=== PATIENT | male | born 1950 | race Caucasian/White ===

== ENCOUNTER 2016-08-24 21:46 | Emergency (ER) ==
--- NOTE | 2016-08-24 23:18 | PROVIDER DOCUMENTATION ---
HPI-Musculoskeletal Pain/Inj - GENERAL Source: patient - HX OF PRESENT ILLNESS-MUSKULOSKELTAL Quality of Pain: reports: aching Severity in ED: mild Onset/Duration: 1 week ago Timing: still present Modifying Factors: improves with: nothing Any recent injury?: No Locality of Occurance: Home Similar Symptoms Previously?: Yes Recently seen or treated by another doctor?: No - BACK & NECK PAIN/INJURY Back/Neck Pain Location: reports: lumbar spine Context / Method of Injury: reports: unknown Associated Symptoms: reports: denies symptoms History of Chronic Neck or Back Pain?: Yes <Danielle Ocampo - Last Filed: 08/25/16 00:22> <Danni Diggs - Last Filed: 08/25/16 01:17> - GENERAL Chief Complaint: Back Pain Stated Complaint: BACK PAIN Time Seen by Provider: 08/24/16 23:10 - HX OF PRESENT ILLNESS-MUSKULOSKELTAL Nature of Presenting Problem: 66 year old M presents to the ED with a cc of lower back pain x1 week. Pt denies injury, urinary retention, or incontinence. (Danielle Ocampo) Review of Systems - Adult - REVIEW OF SYSTEMS - ADULT Constitutional: denies: chills, fever Eyes: reports: no symptoms reported Ears, Nose, Mouth & Throat: reports: no symptoms reported Cardiovascular: denies: chest pain, palpitations Respiratory: denies: cough, shortness of breath Gastrointestinal: denies: abdominal pain, nausea, vomiting Genitourinary: denies: dysuria, incontinence, urinary retention Musculoskeletal: reports: back pain. denies: neck pain Integumentary: denies: skin sores/ulcer, skin thickening Neurological: reports: no symptoms reported Psychiatric: reports: no symptoms reported Endocrine: reports: no symptoms reported Hematologic/Lymphatic: reports: no symptoms reported Allergic/Immunologic: reports: no symptoms reported All Other Systems: Reviewed and Negative <Danielle Ocampo - Last Filed: 08/25/16 00:22> Past History - Adult - PAST MEDICAL HISTORY-ADULT Review of Records: reports: Nursing Assessment Review, Medications Reviewed Major Childhood Illnesses: reports: denies history Cardiovascular: reports: HTN, hyperlipidemia Respiratory: reports: denies history Gastrointestinal: reports: denies history Obstetrical/Gynecological: reports: denies history Genitourinary: reports: denies history Musculoskeletal: reports: arthritis, chronic pain Neurological: reports: denies history Endocrine/Immune: reports: Diabetes, thyroid disorder Other Conditions: reports: denies history - PRIOR SURGERIES/PROCEDURES Surgical/Procedure History: reports: none - PRIOR HOSPITALIZATIONS Prior Hospitalizations: reports: none - IMMUNIZATION STATUS Childhood Immunizations: See Nurse Assessment Flu Vaccine: See Nurse Assessment - FAMILY HISTORY Family History: reviewed, not pertinent - SOCIAL HISTORY Smoking: cigar Provider spent 3-5 mins advising pt. on dangers of tobacco.: Discussed manners to quit use, and f/u contacts for add'l counseling. Substance Use: none/never Alcohol Use Frequency: occasionally <Danielle Ocampo - Last Filed: 08/25/16 00:22> Physical Exam-Injury Related - Physical Exam-Injury Related Initial Vital Signs Reviewed: Yes General Appearance: appears well, alert, no apparent distress Respiratory: chest non-tender, lungs clear, normal breath sounds Cardiovascular: normal peripheral pulses, regular rate, rhythm, no edema Back Exam: other (paralumbar muscle tenderness) Integumentary: normal color, warm/dry Psych/Mental Status: normal mood/affect, normal thought content, normal thought process, oriented x 3 <Danielle Ocampo - Last Filed: 08/25/16 00:22> Progress - CT/MRI 1 CT Study: Lumbar Spine Impression: Abnormal (No acute abnormalities seen. Degenerative changes with multilevel spinal and foraminal stenosis. : Dr. Branch- [facility]) <Danielle Ocampo - Last Filed: 08/25/16 00:22> <Danni Diggs - Last Filed: 08/25/16 01:17> - PLAN OF CARE/RESULTS Progress/Plan/Lab Results: Discussed results and plan of care with patient. Patient agrees with plan and verbalizes understanding. Vital Signs Temp Pulse Resp BP Pulse Ox 08/24/16 22:01 98.2 F 90 18 169/79 99 No Known Allergies Allergy (Verified 08/24/16 22:07) Benazepril HCl 40 mg PO DAILY 01/27/14 Glipizide/Metformin HCl [Glipizide-Metformin 5-500 mg] 2 each PO BID 01/27/14 Levothyroxine Sodium [Synthroid] 150 microgm PO DAILY 01/27/14 Pravastatin Sodium 20 mg PO DAILY 01/27/14 Calamine Lotion 1 applicatn TOP PRN PRN #1 bottle 03/21/15 I&O 08/23/16 08/24/16 08/25/16 06:59 06:59 06:59 Output Total 80 Balance -80 Laboratory 08/25/16 00:25 Urine Source VOIDED Urine Color YELLOW Urine Turbidity CLEAR Urine pH 5.0 Ur Specific [place] 1.016 Urine Protein NEGATIVE Ur Glucose (Stick) TRACE Ur Ketones (Stick) TRACE A Urine Blood NEGATIVE Urine Nitrite NEGATIVE Urine Bilirubin NEGATIVE Urobilinogen Dipstick NORMAL Urine Leukocytes NEGATIVE Urine WBC (Auto) <10 Urine RBC (Auto) <10 U Epithel Cells (Auto) <10 Urine Bacteria (Auto) NEGATIVE Orders Category Date Time Status LUMBAR SPINE 2-VIEWS [RAD] Stat Exams 08/24/16 22:09 Taken LUMBAR SPINE W/O CONTRAST [CT] Stat Exams 08/24/16 23:34 Taken URINALYSIS [URINALYSIS] Stat Lab 08/25/16 00:25 Completed Dexamethasone [Decadron] Med 08/25/16 01:15 Discontinued 10 mg IM NOW ONE Ketorolac [Toradol] Med 08/25/16 01:14 Discontinued 60 mg IM NOW ONE Orphenadrine [Norflex] Med 08/25/16 01:15 Discontinued 60 mg IM NOW ONE Laboratory Tests 08/25/16 00:25 Urine Source VOIDED Urine Color YELLOW Urine Turbidity CLEAR Urine pH 5.0 Ur Specific [place] 1.016 Urine Protein NEGATIVE Ur Glucose (Stick) TRACE Ur Ketones (Stick) TRACE A Urine Blood NEGATIVE Urine Nitrite NEGATIVE Urine Bilirubin NEGATIVE Urobilinogen Dipstick NORMAL Urine Leukocytes NEGATIVE Urine WBC (Auto) <10 Urine RBC (Auto) <10 U Epithel Cells (Auto) <10 Urine Bacteria (Auto) NEGATIVE (Danni Diggs) Departure <Danielle Ocampo - Last Filed: 08/25/16 00:22> - Departure Time of Disposition Order: 01:16 Certified Medical Emergency: Emergent <Danni Diggs - Last Filed: 08/25/16 01:17> - Departure DIAGNOSIS: Lumbago Qualifiers: Chronicity: acute Back pain laterality: bilateral Sciatica presence: without sciatica Qualified Code(s): M54.5 - Low back pain Disposition: HOME 01 Condition: Stable Additional Instructions: Follow up with primary care physician Take medications as directed Return to ED for any concerns or worsening of symptoms ED Follow Up Instructions: You have been treated by a care provider in the Emergency Department. These instructions are being provided to you so you can have an understanding of how to care for yourself upon discharge. Upon discharge from the Emergency Department, you are responsible for making arrangements for follow-up care by a physician of your choice. Take all prescribed medications as directed. Return to the Emergency Department immediately for any new or worsening symptoms. You may call the Physician Referral phone number at [phone] to obtain a list of Physicians who are taking new patients. Prescriptions: Cyclobenzaprine [Flexeril] 10 mg PO TID #20 tablet Ibuprofen [Motrin] 800 mg PO Q8H PRN PRN #20 tablet PRN Reason: inflammation Omeprazole 20 mg PO DAILY #[address] tablet.[address] Krishnamurthy - Scribe Verification/Attestation Scribe:: Danielle Ocampo Acting as Scribe for:: Danni Diggs Scribe documention review:: This chart was documented by a scribe and accurately reflects the service the provider performed and the decisions made by the provider. <Danielle Ocampo - Last Filed: 08/25/16 00:22> - Physician/ REHANA Attestation Patient care was provided by Advanced Practice Provider:: Yes Advanced Practice Provider:: Danni Diggs Advanced Practice Provider documentation review:: The Mid-level provider documentation, treatment plan and medical decision making was reviewed by the physician who agrees with all treatment and medical decision making by the [facility]. <Danni Diggs - Last Filed: 08/25/16 01:17> Physician Attestation - Physician Attestation I, the provider, attest to the following statement:: Danni Diggs Physician documentation Attestation:: This documentation recorded by the scribe accurately reflects the service I personally performed and the decisions made by me. <Danielle Ocampo - Last Filed: 08/25/16 00:22>
[2016-08-25 00:32] LABS: URINE MICRO REVIEW NEEDED? NO; URINE SOURCE VOIDED
[2016-08-25 00:40] LABS: BILIRUBIN URINE NEGATIVE (NEGATIVE); BLOOD URINE NEGATIVE (NEGATIVE); COLOR YELLOW; GLUCOSE URINE TRACE mg/dL (NEGATIVE); LEUKOCYTES URINE NEGATIVE (NEGATIVE); NITRITE URINE NEGATIVE (NEGATIVE); PROTEIN URINE NEGATIVE (NEGATIVE); SP GRAVITY URINE 1.016; TURBIDITY URINE CLEAR (CLEAR); UR EPITHELIAL CELLS <10 /HPF (<10); URINE BACTERIA NEGATIVE /HPF; URINE RBC <10 /HPF (<10); URINE WBC <10 /HPF (<10); UROBILINOGEN URINE NORMAL (NORMAL)
[2016-08-25] MEDS ORDERED: TORADOL IM ONE (01:14)
[2016-08-25] MEDS ORDERED: NORFLEX IM ONE (01:15)
[2016-08-25] MEDS ORDERED: DECADRON IM ONE (01:15)
[2016-08-25 01:41] VITALS: BP 156/71
--- NOTE | 2016-08-25 08:09 | Diag Imaging Result Document ---
PROCEDURE NAME: LUMBAR SPINE W/O CONTRAST - 08/24/2016 CT LUMBAR SPINE WITHOUT CONTRAST: Axial and reformatted sagittal and coronal images are obtained. A dose-reduction protocol was used. COMPARISON: No comparison CT scans available. FINDINGS: There are large anterior bridging osteophytes at multiple levels. There is no fracture identified. There is no subluxation seen. There is no destructive or sclerotic lesion identified. There is multilevel degenerative disease with posterior disk protrusions and facet and ligamentum flavum hypertrophy. There is associated mild narrowing of the spinal canal at L5-S1. There is associated moderate spinal stenosis at L4-5. There is associated moderate spinal stenosis at L3-4. There is associated mild spinal stenosis at L2-3. IMPRESSION: 1. Multilevel degenerative disease. Associated mild narrowing of the spinal canal at L5-S1. Associated moderate spinal stenosis at L4-5. Associated moderate spinal stenosis at L3-4. Associated mild spinal stenosis at L2-3. 2. No evidence of fracture or subluxation. A [facility] physician provided preliminary results at 12:16 a.m. on 08/25/2016. MTDD
--- NOTE | 2016-08-25 08:21 | Diag Imaging Result Document ---
PROCEDURE NAME: LUMBAR SPINE 2-VIEWS - 08/24/2016 LUMBOSACRAL SPINE, 2 VIEWS: FINDINGS: The pedicles appear to be intact. There is some narrowing of the disk spaces at the L3- 4 and L4-5 levels. There are large anterior osteophytes at each lumbar level. No evidence of fracture or subluxation is present. IMPRESSION: Degenerative disk disease.
== END 2016-08-25 01:41 | disposition home or self-care (01) ==
LOC: ED 21:46
DX: M54.5 Low back pain (principal); I10 Essential (primary) hypertension; E78.5 Hyperlipidemia, unspecified; M19.90 Unspecified osteoarthritis, unspecified site; G89.29 Other chronic pain; E11.9 Type 2 diabetes mellitus without complications; E07.9 Disorder of thyroid, unspecified; F17.290 Nicotine dependence, other tobacco product, uncomplicated; Z79.899 Other long term (current) drug therapy; Z71.6 Tobacco abuse counseling
CPT/HCPCS: 72100; 72131; 81001; J1885; J2360